=== PATIENT | male | born 1970 ===

== ENCOUNTER 2017-10-16 09:33 | Outpatient (CLI) | payer OTHER | END 2017-10-16 09:42 | disposition home or self-care (01) | LOC: RAD 09:33 | DX: M75.52 Bursitis of left shoulder (principal) ==

== ENCOUNTER 2018-07-17 18:09 | Emergency (ER) | payer OTHER ==
[~2018-07-17] VITALS: Ht 170.2 cm; Wt 70.8 kg
== END 2018-07-17 22:06 | disposition home or self-care (01) ==
LOC: ER 18:09
DX: S22.32XA Fracture of one rib, left side, initial encounter for closed fracture (principal); R07.89 Other chest pain; X50.0XXA Overexertion from strenuous movement or load, initial encounter; Y93.18 Activity, surfing, windsurfing and boogie boarding; Y92.832 Beach as the place of occurrence of the external cause; Y99.8 Other external cause status

== ENCOUNTER 2021-05-03 15:00 | Outpatient (CLI) | payer OTHER | END 2021-05-03 15:09 | disposition home or self-care (01) | LOC: RAD 15:00 | DX: M21.6X1 Other acquired deformities of right foot (principal) ==

== ENCOUNTER 2023-02-10 21:28 | Emergency (ER) | payer OTHER ==
[~2023-02-10] VITALS: Ht 170.2 cm; Wt 68.0 kg
[2023-02-11] MEDS ORDERED: PHAZYME500 MG PO (06:09)
== END 2023-02-11 06:16 ==
LOC: ER 21:28
DX: R10.13 Epigastric pain (principal)

== ENCOUNTER 2023-04-29 07:23 | Outpatient (CLI) | payer OTHER ==
[~2023-04-29 07:23] MED LIST: PHAZYME500 MG PO
== END 2023-04-29 07:53 | disposition home or self-care (01) ==
LOC: SONOGRAMA 07:23
DX: R10.84 Generalized abdominal pain (principal)